=== PATIENT | female | born 1970 | race Caucasian/White ===

== ENCOUNTER → 2016-10-31 | Outpatient (CLI) | payer OTHER, BC ==
[~2016-10-31] MED LIST: CIPR500T87 PO; DILT180T7 TP; DOCU50CA3 PO; METR250T PO; NORT10CA PO; OXYC1TAB7 PO; RABE20TA26 PO
== END | disposition home or self-care (01) ==
LOC: CFH 07:07
PROVIDERS: ATTEND Nurse Practitioner
DX: Z12.31 Encounter for screening mammogram for malignant neoplasm of breast (principal); N92.0 Excessive and frequent menstruation with regular cycle
CPT/HCPCS: 76830; G0202

== ENCOUNTER → 2016-10-31 | Outpatient (CLI) | payer OTHER, BC | END | disposition home or self-care (01) | LOC: STAR 08:47 | PROVIDERS: ATTEND Internal Medicine Gastroenterology | DX: Z01.818 Encounter for other preprocedural examination (principal); K21.9 Gastro-esophageal reflux disease without esophagitis; K31.84 Gastroparesis; E61.1 Iron deficiency; N92.0 Excessive and frequent menstruation with regular cycle; R14.0 Abdominal distension (gaseous) | CPT/HCPCS: 93005 ==

== ENCOUNTER → 2017-12-15 | Outpatient (CLI) | payer OTHER, BC | LOC: CFH 07:25 → EDSTATUS 07:30 | PROVIDERS: ATTEND Nurse Practitioner | DX: Z12.31 Encounter for screening mammogram for malignant neoplasm of breast (principal) | CPT/HCPCS: 77067 ==

== ENCOUNTER → 2020-12-05 | Outpatient (CLI) | payer OTHER, BC ==
[~2020-12-05] MED LIST changes: -RABE20TA26 PO; +RABE20TA29 PO; +REGADENOSON 0.4 MG/5 ML SYRINGE ONE; +SINCALIDE (KINEVAC) 5 MCG ONE
== END | disposition home or self-care (01) ==
LOC: RAD 10:29
PROVIDERS: ATTEND Physician Assistant
DX: R10.11 Right upper quadrant pain (principal)
CPT/HCPCS: 78227; A9537; J2805; J2785

== ENCOUNTER 2021-01-21 06:19 | Day surgery (SDC) | payer OTHER, BC ==
[~2021-01-21] VITALS: Ht 152.4 cm; Wt 62.4 kg
[~2021-01-21 06:19] MED LIST changes: -REGADENOSON 0.4 MG/5 ML SYRINGE ONE; -SINCALIDE (KINEVAC) 5 MCG ONE
[2021-01-21] MEDS ORDERED: BUPIVACAINE/PF 0.5% ONE (06:57)
[2021-01-21] MEDS ORDERED: EPINEPHRINE 1 MG/ML, 1ML ONE (06:58)
[2021-01-21] MEDS ORDERED: DEXL60CA2 PO (07:05)
[2021-01-21] MEDS ORDERED: CHLORHEXIDINE 15 ML UDC ONE (07:09)
[2021-01-21 07:23] VITALS: BP 121/81
[2021-01-21] MEDS ORDERED: LACTATED RINGERS 1,000 ML IV SCH (07:30)
[2021-01-21] MEDS ORDERED: CHLORHEXIDINE 15 ML UDC PO ONE (07:30)
[2021-01-21] MEDS ORDERED: PLEASE ENTER HEIGHT AND WEIGHT MC SCH (07:30)
[2021-01-21] MEDS ORDERED: MIDAZOLAM 1 MG/ML, 2ML ONE (07:56)
[2021-01-21] MEDS ORDERED: FENTANYL PF 250 MCG/5ML ONE (07:57)
[2021-01-21] MEDS ORDERED: MIDAZOLAM 1 MG/ML, 2ML IV PRN (08:00)
[2021-01-21] MEDS ORDERED: OXYcodone 5 MG/5 ML ORAL.SOL UDC PO PRN (08:00)
[2021-01-21] MEDS ORDERED: ONDANSETRON 2MG/ML, 2ML IVPush PRN (08:00)
[2021-01-21] MEDS ORDERED: MEPERIDINE/PF 25MG/0.5ML IVPush PRN (08:00)
[2021-01-21] MEDS ORDERED: ACETAMINOPHEN 325 MG TABLET PO PRN (08:00)
[2021-01-21] MEDS ORDERED: LORazepam 2 MG/ML, 1ML IVPush PRN (08:00)
[2021-01-21] MEDS ORDERED: HYDROmorphone 1 MG/ML, 1ML INJ IVPush PRN (08:00)
[2021-01-21] MEDS ORDERED: PROMETHAZINE 12.5 MG SUPP PR PRN (08:00)
[2021-01-21] MEDS ORDERED: LABETALOL 20 MG/4 ML ONE (08:30)
[2021-01-21] MEDS ORDERED: KETOROLAC 30 MG/1 ML ONE (08:30)
[2021-01-21] MEDS ORDERED: SUCCINYLCHOLINE 20 MG/ML, 10ML ONE (08:30)
[2021-01-21] MEDS ORDERED: hydrALAzine 20 MG/ML, 1ML ONE (08:30)
[2021-01-21] MEDS ORDERED: PROPOFOL 10 MG/ML, 100ML IV ONE (08:30)
[2021-01-21] MEDS ORDERED: ONDANSETRON 2MG/ML, 2ML ONE (08:30)
[2021-01-21] MEDS ORDERED: DEXAMETHASONE 4 MG/ML, 5ML ONE (08:30)
[2021-01-21] MEDS ORDERED: ROCURONIUM 10 MG/ML,10ML ONE (08:30)
[2021-01-21] MEDS ORDERED: SUGAMMADEX 200 MG/2 ML IVPush ONE (08:30)
[2021-01-21] MEDS ORDERED: LIDOCAINE 1%, 20ML ONE (08:30)
[2021-01-21] MEDS ORDERED: CEFOTETAN 2 GM ONE (08:30)
[2021-01-21] MEDS ORDERED: HYDR-2214 PO (09:12)
[2021-01-21] MEDS ORDERED: OXYcodone 5 MG/5 ML ORAL.SOL UDC ONE (09:52)
[2021-01-21] MEDS ORDERED: FENTANYL PF 100 MCG/2ML ONE (09:52)
[2021-01-21] MEDS ORDERED: ACETAMINOPHEN 650 MG/20.3 ML UDC ONE (09:53)
[2021-01-21] MEDS: FENTANYL PF 100 MCG/2ML IV PRN ×2 (09:55→10:02)
[2021-01-21] MEDS ORDERED: PROMETHAZINE 25 MG SUPP PR ONE (11:36)
== END 2021-01-21 11:49 | disposition home or self-care (01) ==
LOC: OUT 06:19
PROVIDERS: ATTEND Surgery
DX: K82.8 Other specified diseases of gallbladder (principal); K81.1 Chronic cholecystitis; K21.9 Gastro-esophageal reflux disease without esophagitis; F32.9 Major depressive disorder, single episode, unspecified; Z20.822 Contact with and (suspected) exposure to COVID-19; Z79.899 Other long term (current) drug therapy; Z87.891 Personal history of nicotine dependence; Z88.8 Allergy status to other drugs, medicaments and biological substances; Z91.018 Allergy to other foods; Z98.890 Other specified postprocedural states
CPT/HCPCS: 47562; 87635; 88304; J0171; J0330; J0360; J1100; J1885; J2250; J2405; J2704; J3010; J7120